=== PATIENT | male | born 1945 | race Caucasian/White ===

== ENCOUNTER → 2018-01-20 | Outpatient (CLI) | payer OTHER ==
[~2018-01-20] MED LIST: FEXO1TAB49 PO; MULT-506 PO; NAPR1CAP12 PO; SYMIN160 INH
--- NOTE | 2018-01-20 07:26 | DIAGNOSTIC IMAGING REPORT ---
(CHEST) THORAX WITHOUT CLINICAL HISTORY: 72 years-old Male presenting with J31.0 Rhinitis. TECHNIQUE: Multidetector CT imaging of the chest was performed without the use of intravenous contrast. IV contrast: None. A dose lowering technique was used consistent with the principles of ALARA (as low as reasonably achievable). COMPARISON: 03/06/2015. CT DOSE (mGy.cm): The estimated cumulative dose is 1084.26 mGy.cm. FINDINGS: Wardrobe Attendant topogram: Unremarkable. On soft tissue windows, normal thyroid and thoracic inlet. Bilateral gynecomastia. No axillary, supraclavicular, or mediastinal lymphadenopathy. Evaluation of the tonie limited without intravenous contrast. Atherosclerosis of the aorta. Normal heart size. Minimal coronary artery calcification. No pericardial or pleural effusion. Borderline hepatic steatosis. Trace hiatal hernia. On lung windows, minimal dependent changes likely atelectasis. No other focal nodule or infiltrate. Airways patent. On bone windows, degenerative changes of the spine. IMPRESSION: 1. No acute intrathoracic pathology. Electronically signed by: Jose Luis Simon M.D. 01/20/2018 7:24 AM Dictated Date/Time: 01/20/2018 7:21 AM
--- NOTE | 2018-01-20 07:36 | DIAGNOSTIC IMAGING REPORT ---
SINUS CT WITHOUT CONTRAST CLINICAL HISTORY: Allergic rhinitis. COMPARISON STUDY: None. Technique: Helical axial images of the sinuses were obtained without IV contrast. Coronal reformats were viewed. A dose lowering technique was utilized adhering to the principles of ALARA. CT DOSE: 636.42 mGy.cm FINDINGS: Visualized portions of the intracranial contents are unremarkable. Orbits are within normal limits. The mastoid air cells are clear. There is no fluid within the middle ears. Ossicles are intact. Note is made of moderate leftward deviation of the nasal septum with spur formation. There is moderate mucosal thickening of the maxillary sinuses with mild mucosal thickening of the remainder of the sinuses. The right ostiomeatal complex is patent. The left is occluded. A small air-fluid level within the right maxillary sinus is noted. No bony destruction is present. No mass is present within the nasal cavity or the sinuses. There are multiple dental amalgams. IMPRESSION: 1. Moderate sinus mucosal thickening, most pronounced within the maxillary sinuses. A small right maxillary sinus air-fluid level suggests acute sinusitis. 2. Occluded right ostiomeatal complex. 3. Moderate leftward deviation of the nasal septum with spur formation. Electronically signed by: Arthur Fisher M.D. 01/20/2018 7:34 AM Dictated Date/Time: 01/20/2018 7:24 AM
== END | disposition home or self-care (01) ==
LOC: C.CTS 06:46
PROVIDERS: ATTEND Internal Medicine Critical Care Medicine
DX: J31.0 Chronic rhinitis (principal)